=== PATIENT | male | born 1965 | race Caucasian/White ===

== ENCOUNTER 2022-11-01 09:56 | Outpatient (CLI) | payer OTHER, SELFPAY ==
[2022-11-01 13:31] LABS: Albumin* 3.1 g/dL (3.3-5.0)
[2022-11-01 13:34] LABS: Alkaline Phosphatase* 116 U/L (40-150); Aspartate Amino Transferase* 127 U/L (12-35); Bilirubin Direct* 1.1 mg/dL (0.0-0.5); Bilirubin Total* 3.2 mg/dL (0.1-1.5); Total Protein* 7.3 g/dL (6.0-8.3)
[2022-11-01 13:35] LABS: Alanine Aminotransferase* 54 U/L (4-50)
[2022-11-01 13:46] LABS: Cholesterol* 101 mg/dL (90-199)
[2022-11-01 13:47] LABS: HDL Cholesterol* 13 mg/dL (>=40); LDL Cholesterol Calculated 76 mg/dL (<100); Triglycerides* 60 mg/dL (40-149)
[2022-11-01 14:07] LABS: PSA Screen* 0.25 ng/mL (0.10-4.00)
== END 2022-11-01 09:57 | disposition home or self-care (01) ==
PROVIDERS: PCP Family Medicine; Visit Provider Family Medicine
DX: Z00.00 Encounter for general adult medical examination without abnormal findings (principal); I10 Essential (primary) hypertension; R05.9 Cough, unspecified; R53.83 Other fatigue; R79.89 Other specified abnormal findings of blood chemistry; Z12.5 Encounter for screening for malignant neoplasm of prostate
CPT/HCPCS: 80061; 80076; 84153

== ENCOUNTER 2022-11-01 11:32 | Inpatient (IN) | payer OTHER, SELFPAY ==
[2022-11-01] VITALS (8 sets, daily range): BP systolic 125–145; BP diastolic 75–84; PULSE 59–98; RESP 16–18; TEMP 36.6–37.1; O2SAT 95–99; BMI 31.6
--- NOTE | 2022-11-01 11:43 | CRLHL7_ITS ---
For Patients: As a result of the Century Cures Act, medical imaging exams and procedure reports are released immediately into your electronic medical record. You may view this report before your referring provider. If you have questions, please contact your health care provider. INDICATION: Abnormal chest x-ray COMPARISON: A chest radiograph dated November 01, 2019 TECHNIQUE: : CT examination of the chest was performed with the uneventful intravenous administration of 95 cc of Isovue 370 while thin axial sections were obtained from above the apices of the lungs to the lung bases. Please note that all CT scans at this facility use dose modulation, iterative reconstruction, and/or weight-based dosing when appropriate to reduce radiation dose to as low as reasonably achievable. FINDINGS: : HEART and MEDIASTINUM: The heart is mildly enlarged. There is no mediastinal or hilar adenopathy or mass. Atherosclerotic vascular and valvular calcifications. No pericardial effusion PULMONARY ARTERIAL CIRCULATION: There is no visible intraluminal filling defect to suggest pulmonary embolus. LUNGS and PLEURAL SPACES: Marked dense consolidation the right lower lobe. This is most of the superior segment of the right lower lobe and the posterior and medial basilar segments as well as a portion of the lateral segment. This is consistent with pneumonia. There are few patchy nodules bilaterally that are tree-in-bud nodules which are usually inflammatory. No significant pleural fluid VISUALIZED UPPER ABDOMEN: Hepatic steatosis. Otherwise, the limited visualized upper abdominal structures appear normal. OSSEOUS STRUCTURES: Age-appropriate appearance. No acute fracture or destructive process. TUBES and LINES: None. IMPRESSION: 1. Dense consolidation of much of the right lower lobe. This is consistent with dense lobar pneumonia. Tiny right effusion. Tree-in-bud nodules bilaterally consistent with infectious bronchiolitis without judi pneumonia. Imaging follow-up to complete resolution is advised. 2. Hepatic steatosis Please note that all CT scans at this facility use dose modulation, iterative reconstruction, and/or weight-based dosing when appropriate to reduce radiation dose to as low as reasonably achievable. Dictated by Meek Hurtado MD @ 11/01/2022 2:12:51 PM (Electronically Signed)
--- NOTE | 2022-11-01 12:10 | P.IMHP_ITS ---
Hospitalist- H&P: HPI History of Present Illness Date Seen: 11/01/22 Chief complaint: Direct Admit Narrative: Vic Almazan is a 57 year old male who was direct admitted to the hospital from the [facility], after seeing his PCP, Dr. Johns, for illness. Vic notes feeling poorly for the last 7-10 days. He has had a cough, weakness, fatigue, intermittent dizziness. He tested himself at home for COVID which was negative. present for evaluation in notes that he has also had intermittent periods of confusion and has not been eating both are symptoms that were noted when he was hyponatremic in the past (hospitalized for this in 2016; sodium <115 while on HCTZ), so they made an appointment to see Dr. Johns today. Clinic findings: - R sided pneumonia on imaging - sodium of 121, K of 3.4 - Bilirubin 3.2, AST 127, ALT 54 - elevated D-dimer Patient did not require supplemental oxygen and was otherwise hemodynamically stable; so direct admission to the hospital requested. CT obtained upon admission, negative for PE. Findings per formal radiology read: 1. Dense consolidation of much of the right lower lobe. This is consistent with dense lobar pneumonia. Tiny right effusion. Tree-in-bud nodules bilaterally consistent with infectious bronchiolitis without judi pneumonia. Imaging follow-up to complete resolution is advised. 2. Hepatic steatosis Vic lives in [place], Dr. Johns is PCP. History updated in tabs below. 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 She would be medical decision maker if needed. He requests full code status. He is a nonsmoker (chart review endorses a history of chewing tobacco use). He notes a history of alcohol overuse; has not had any alcohol in approximately the past 10 days secondary to illness, but typically drinks daily. No history of alcohol withdrawal seizures. Review of Systems Status of ROS: Reports: 10 or more systems reviewed and unremarkable except as noted in History and below Narrative: Notes that he's felt so poorly over the past 10 days that he hasn't been able to go to work. Appetite decreased. Circular bruise left tricep, unknown mechanism. No other skin concerns. No lower extremity edema or paresthesias, endorses feeling weak in legs bilaterally. No GERD, no concerns of aspiration [facility] Medical History (Updated 11/01/22 @ 14:42 by Guillermina Kelly MD) Elevated liver function tests Encounter for routine history and physical examination of adult Essential hypertension Surgical History (Updated 11/01/22 @ 14:10 by Guillermina Kelly MD) No history of previous surgery Family History (Updated 11/01/22 @ 14:10 by Guillermina Kelly MD) Father High blood pressure Social History (Updated 11/01/22 @ 14:41 by Guillermina Kelly MD) Narrative: Lives with Edilma, works in construction. Daily alcohol use. Nonsmoker. Requests full code status. service: No Meds Home Medications and Allergies Home Medications Medication Instructions Recorded Confirmed Type lisinopril 40 mg tablet 40 mg PO QDAY 11/01/22 11/01/22 History metoprolol succinate 100 mg 100 mg PO DAILY 11/01/22 11/01/22 History tablet,extended release 24 hr Home Medication Comments: Also on Amlodipine 7.5mg daily. Takes Lisinopril at HS, takes Amlodipine and Metoprolol in the morning. Allergies Allergy/AdvReac Type Severity Reaction Status Date / Time hydrochlorothiazide Allergy Severe decreases Verified 11/01/22 11:58 sodium levels Exam Narrative: Exam Narrative: GEN: Awake and answering questions, appears tired but not toxic HEENT: Normal external ears, EOMIs bilaterally, no scleral icterus CV: RRR, No concerning murmurs, rubs, or gallops R: Rales R base, no concerning wheezing. No tachypnea Ext: wwp, no concerning edema Skin: Circular bruise R tricep, approximately 7cm in greatest diameter. No other concerning skin lesions or rashes on exposed skin Neuro: No focal deficits, no resting tremor, gait not observed Psych: Mild psychomotor slowing noted, not acutely confused Assessment and Plan Assessment and plan (1) Pneumonia: Problem comment: - R sided, community acquired vs aspiration (no known aspiration events) - no PE on CT - draw blood cultures, initiate Zosyn (11/01) - RT referral Status: Acute (2) Hyponatremia: Problem comment: - likely combination of increased free water intake while ill (decreased po intake) + ETOH use - low dose IVFs, fluid restriction - follow sodium closely Status: Acute (3) Fatigue: Problem comment: - likely 2/2 #1 Status: Acute (4) Elevated liver function tests: Problem comment: - likely combination of hepatosteatosis (noted on admission CT) + ETOH - continue to follow, recommend complete alcohol cessation Status: Acute (5) Alcohol abuse: Problem comment: - with sequela of elevated LFTs, macrocytic anemia, hyponatremia, thrombocytopenia Status: Acute (6) Essential hypertension: Problem comment: - age appropriate control, continue home medications Status: Acute Plan - per above - SCDs and Lovenox (to start 11/02) for ppx - Full Code status
[2022-11-01 12:39] LABS: PCR FLU A Negative PCR FLU A (Negative); PCR FLU B Negative PCR FLU B (Negative); PCR RSV Negative PCR RSV (Negative)
[2022-11-01 12:41] LABS: SARS PCR* Negative SARS-CoV-2 (Negative)
[2022-11-01] MEDS: 0.9 % SODIUM CHLORIDE 1000 ml 1,000 ML 125 ML IV ×2 (13:54→22:00)
[2022-11-01] MEDS: PANTOPRAZOLE SODIUM 40 MG INJ IVP (14:02)
[2022-11-01] MEDS: THIAMINE 100 MG TABLET PO (14:02)
[2022-11-01] MEDS: PIPERACILLIN/TAZOBACTAM 4.5 GM in 0.9 % SODIUM CHLORIDE Mini-bag 100 ML IVPB ×2 (15:52→20:32)
[2022-11-01 16:05] LABS: Chloride* 87 mmol/L (96-114)
[2022-11-01 16:06] LABS: Potassium* 3.1 mmol/L (3.6-5.1)
[2022-11-01 16:08] LABS: Creatinine* 0.7 mg/dL (0.5-1.5); Est. Creatinine Clearance* 126.99; Estimated Glomerular Filt Rate 109 ml/min
[2022-11-01 16:09] LABS: Blood Urea Nitrogen* 9 mg/dL (7-30); Calcium* 8.2 mg/dL (8.4-10.6); Carbon Dioxide* 27 mmol/L (20-32); Glucose* 98 mg/dL (60-115)
[2022-11-01 16:17] LABS: Sodium* 121 mmol/L (135-149)
--- NOTE | 2022-11-01 19:05 | PC.NURSE ---
Pt alert and oriented, answering questions appropriately, slightly delayed responses on initial questions but improved. Pt up to bathroom w/ SBA originally to bathroom but steady on feet and w/ IV pole maneuvering. Voiding into urinal in bathroom, first couple voids unmeasured. Intermit cough. Vitals stable, on RA. x2 PIVs, L hand has IVF infusing per order, received Zosyn this shift, BC pending. CIWA 0. Pt and educated on pt's diet of and 1500ml fluid restriction. Pt has call light within reach and able to use.
[2022-11-01] MEDS: lisinopriL 20 MG TABLET 40 MG PO (20:29)
[2022-11-01] MEDS: SODIUM CHLORIDE 0.9 % (FLUSH) 10 ML SYRINGE 5 ML IVF (20:33)
[2022-11-01 20:50] LABS: Chloride* 91 mmol/L (96-114)
[2022-11-01 20:53] LABS: Creatinine* 0.8 mg/dL (0.5-1.5); Est. Creatinine Clearance* 111.12; Estimated Glomerular Filt Rate 105 ml/min
[2022-11-01 20:54] LABS: Blood Urea Nitrogen* 9 mg/dL (7-30); Calcium* 8.1 mg/dL (8.4-10.6); Carbon Dioxide* 27 mmol/L (20-32); Glucose* 109 mg/dL (60-115)
[2022-11-01 21:12] LABS: Sodium* 123 mmol/L (135-149)
[2022-11-01] MEDS: POTASSIUM BICARB 25 MEQ EFFERVESCENT TAB PO (22:23)
[2022-11-02] VITALS (8 sets, daily range): BP systolic 113–127; BP diastolic 60–77; PULSE 64–81; RESP 18; TEMP 36.8–37.1; O2SAT 94–100
[2022-11-02] MEDS: POTASSIUM BICARB 25 MEQ EFFERVESCENT TAB PO (00:03)
[2022-11-02] MEDS: PIPERACILLIN/TAZOBACTAM 4.5 GM in 0.9 % SODIUM CHLORIDE Mini-bag 100 ML IVPB ×3 (03:14→14:41)
--- NOTE | 2022-11-02 06:14 | PC.NURSE ---
VSS on RA. Patient alert and oriented x4, call light appropriate. Patient denies pain on assessment. IV fluid infusing at 125/ml, antibiotics infused x2 this shift.
[2022-11-02 06:57] LABS: Basophils Absolute Auto 0.04 K/uL (0.00-0.30); Basophils Percent Auto 0.7 % (0.0-3.0); Eosinophils Absolute Auto 0.11 K/uL (0.00-0.50); Eosinophils Percent Auto 1.8 % (0.0-7.0); Hematocrit 30.6 % (37.0-53.0); Hemoglobin* 11.2 gm/dL (13.5-17.5); Immature Granulocytes Abs Auto 0.02 K/uL (0.00-0.30); Immature Granulocytes Pct Auto 0.3 %; Lymphocytes Percent Auto 13.7 % (20-44); Mean Corpuscular HGB Conc 37 gm/dL (32-36); Mean Corpuscular Hemoglobin 37 pg (26-34); Mean Corpuscular Volume 102 fL (80-100); Monocytes Percent Auto 13.5 % (0.0-11.0); Neutrophils Absolute Auto 4.25 K/uL (1.7-7.0); Platelet Count* 91 K/uL (140-440); RDW Coefficient of Variation % 12.8 % (11.5-15.5); White Blood Count* 6.07 K/uL (4.50-11.00)
[2022-11-02 07:04] LABS: Slide Review Reflex No
[2022-11-02 07:16] LABS: INR 1.48 (0.91-1.10); Prothrombin Time 18.8 Seconds
[2022-11-02 07:20] LABS: Albumin* 2.7 g/dL (3.3-5.0); Chloride* 95 mmol/L (96-114); Potassium* 3.4 mmol/L (3.6-5.1); Sodium* 126 mmol/L (135-149)
[2022-11-02 07:22] LABS: Creatinine* 0.8 mg/dL (0.5-1.5); Est. Creatinine Clearance* 111.12; Estimated Glomerular Filt Rate 105 ml/min
[2022-11-02 07:23] LABS: Alanine Aminotransferase* 44 U/L (4-50); Alkaline Phosphatase* 112 U/L (40-150); Aspartate Amino Transferase* 88 U/L (12-35); Bilirubin Total* 2.5 mg/dL (0.1-1.5); Blood Urea Nitrogen* 9 mg/dL (7-30); Calcium* 7.6 mg/dL (8.4-10.6); Carbon Dioxide* 27 mmol/L (20-32); Glucose* 95 mg/dL (60-115); Magnesium* 1.6 mg/dL (1.5-2.6); Total Protein* 6.4 g/dL (6.0-8.3)
[2022-11-02] MEDS: 0.9 % SODIUM CHLORIDE 1000 ml 1,000 ML 125 ML IV (08:35)
[2022-11-02] MEDS: SODIUM CHLORIDE 0.9 % (FLUSH) 10 ML SYRINGE 5 ML IVF (08:36)
[2022-11-02] MEDS: MULTIVITAMIN/MINERALS 1 TABLET 1 TAB PO (08:37)
[2022-11-02] MEDS: POTASSIUM CHLORIDE 10 MEQ CAPSULE ER 20 MEQ PO (08:37)
[2022-11-02] MEDS: AMLODIPINE 5 MG TABLET 7.5 MG PO (08:37)
[2022-11-02] MEDS: METOPROLOL SUCCINATE (XL) 100 MG TAB PO (08:38)
--- NOTE | 2022-11-02 10:43 | NUTR.NU ---
RDN with MD consult for hyponatremia. RDN visited with patient whom reported very low oral intake about 7 days prior to admit. He increased his water intake within those 7 days, however did not eat very much food. Sodium levels on admit (11/01/22) 121; Sodium level 11/02/22 126. RDN recommended to patient that when he is ill and has very low oral intake, he should consume fluids with electrolyes such as Gatorade or Pedialyte instead of plain water. Plain water does not provide any electrolytes which can cause low sodium levels if oral intake is very low. Patient expressed his understanding. Had no additional questions at this time. RDN will continue to monitor and follow-up prn.
--- NOTE | 2022-11-02 11:15 | RESP.RT ---
Pt started PEP therapy. Working well with it towards the end of treatment. Instructed pt to use at home 4 times per day for 5-10 minutes. Pt with harsh dry FORGE HEATER cough. Pt reports coughing up sputum at times. BBS decreased in R LL, scattered Rhonchi.
[2022-11-02] MEDS: THIAMINE 100 MG TABLET PO (12:45)
[2022-11-02] MEDS: PANTOPRAZOLE SODIUM 40 MG INJ IVP (12:45)
--- NOTE | 2022-11-02 14:49 | PC.NURSE ---
End of shift. Pt alert and oriented x4. no pain. he is up ab santo. RT was in to see. Aerobika was used. SL in right Ac and , L hand infusing maintenance fluids, received IV Zosyn this shift, BC pending. CIWA 0. Pt on a 1500ml fluid restriction. Pt has call light within reach and able to use.
[2022-11-02 15:14] LABS: Chloride* 97 mmol/L (96-114); Potassium* 3.4 mmol/L (3.6-5.1); Sodium* 128 mmol/L (135-149)
[2022-11-02 15:17] LABS: Blood Urea Nitrogen* 8 mg/dL (7-30); Carbon Dioxide* 26 mmol/L (20-32); Creatinine* 0.7 mg/dL (0.5-1.5); Est. Creatinine Clearance* 126.99; Estimated Glomerular Filt Rate 109 ml/min; Glucose* 122 mg/dL (60-115)
[2022-11-02 15:18] LABS: Calcium* 7.5 mg/dL (8.4-10.6)
--- NOTE | 2022-11-02 15:48 | P.DS_ITS ---
DS: Providers Provider Date Seen: 11/02/22 Date of admission: 11/01/22 11:32 Primary care physician: Jose Johns MD Admitting Clinician: Guillermina Kelly MD Consults: Nutrition, RT Attending Physician on discharge: Guillermina Kelly MD Date of Discharge: 11/02/22 DS: Diagnosis Discharge Diagnosis (1) Pneumonia: Status: Acute Problem details: - R sided, community acquired vs aspiration (no known aspiration events, elevated risk given ETOH use) - no PE on admission CT - treated with Zosyn; BCx negative on discharge - will need repeat outpatient XR in 4 weeks to ensure resolution (2) Elevated liver function tests: Status: Acute Problem details: - likely combination of hepatosteatosis (noted on admission CT) + ETOH - MELD score of 25 on admission, recommend close outpatient f/u and complete ETOH cessation; patient and aware (3) Hyponatremia: Status: Acute Problem details: - likely combination of increased free water intake while ill (decreased po intake) + ETOH use - improved appropriately with fluid restriction and low dose IVFs (4) Alcohol abuse: Status: Acute Problem details: - with sequela of elevated MELD, elevated LFTs, macrocytic anemia, hyponatremia, thrombocytopenia - recommend complete cessation upon discharge; patient and verbalize understanding (5) Essential hypertension: Status: Acute Problem details: - age appropriate control, continued home medications during stay DS: Summary Hospital Course Hospital Course: 57 yo male, admitted to the hospital on 11/01 for R sided pneumonia and hyponatremia. Notable hospital findings above. Sodium improved with low dose IVFs and mild fluid restriction. LFTs improved during stay; remained elevated with known history of ETOH abuse and steatohepatitic disease. Pneumonia treated with Zosyn, will transition to Augmentin upon discharge. Patient will require short interval f/u with PCP for repeat labs (appt made upon d/c); he will also require repeat CXR in 4 weeks to ensure resolution of PNA. Status at Discharge Functional status at discharge: independent ambulation Overall status at discharge: patient is progressing back to baseline Time Spent with Patient Time attestation: Total time spent providing and/or coordinating discharge services: Time spent: Greater than 30 minutes Specific discharge activities: Medication reconciliation, updates to patient and , followup planning Exam 2 Narrative: Exam Narrative: GEN: Awake and alert, sitting comfortably in bed and answering questions appropriately HEENT: EOMIs bilaterally, no scleral icterus CV: RRR, No concerning murmurs, rubs, or gallops R: Air movement adequate throughout, no concerning wheezing Ext: wwp, no concerning edema Skin: No concerning skin lesions on exposed skin Neuro: No focal deficits, no resting tremor, gait not observed Psych: Appropriate Const: Vital Signs, click to edit/add: Vital Signs - 24 hr 11/01/22 18:37 11/01/22 19:00 11/01/22 19:00 Temperature 98.5 F 98.5 F Pulse Rate 69 Pulse Rate [Pulse Oximeter] 70 70 Respiratory Rate 18 18 Blood Pressure [Le ft Arm] 136/78 136/78 Pulse Oximetry 97 97 Oxygen Delivery N[place] thod Room Air Room Air 11/01/22 23:00 11/01/22 23:00 11/01/22 23:00 Temperature 98.5 F Pulse Rate Pulse Rate [Pulse Oximeter] 70 70 Respiratory Rate 18 18 Blood Pressure [Le ft Arm] 136/78 [facility]ulse Oximetry 97 96 [facility] 11/01/22 23:00 11/02/22 02:37 11/02/22 03:00 Temperature 98.8 F 98.8 F Pulse Rate 64 Pulse Rate [Pulse Oximeter] 69 69 Respiratory Rate 18 18 Blood Pressure [Le ft Arm] 125/77 125/77 Pulse Oximetry 96 96 [facility] Room [facility] 11/02/22 03:00 11/02/22 07:59 11/02/22 07:00 Temperature 98.4 F 98.4 F Pulse Rate 81 Pulse Rate [Pulse Oximeter] 73 76 Respiratory Rate 18 18 Blood Pressure [Le ft Arm] 113/67 127/76 Pulse Oximetry 96 96 [facility] 11/02/22 07:00 11/02/22 07:00 11/02/22 07:00 Temperature 98.4 F Pulse Rate Pulse Rate [Pulse Oximeter] 76 76 Respiratory Rate 18 18 18 Blood Pressure [Le ft Arm] 127/76 Pulse Oximetry 96 96 [facility] 11/02/22 11:00 11/02/22 11:05 Temperature 98.5 F 98.5 F Pulse Rate Pulse Rate [Pulse Oximeter] 75 75 Respiratory Rate 18 18 Blood Pressure [Le ft Arm] 122/60 122/60 Pulse Oximetry 100 100 Oxygen Delivery Me thod Room Air Room Air DS: Data Data Completed and Pending Labs on day of discharge: Labs from last 24 hours 11/02/22 11/02/22 11/02/22 14:54 06:44 06:44 WBC RBC Hgb Hct MCV MCH MCHC RDW Coeff of Siri Plt Count Neut % (Auto) Lymph % (Auto) [place] % (Auto) Eos % (Auto) Baso % (Auto) Neut # (Auto) Lymph # (Auto) [place] # (Auto) Eos # (Auto) Baso # (Auto) INR 1.48 H Sodium 128 L 126 L Potassium 3.4 L 3.4 L Chloride 97 95 L Carbon Dioxide 26 27 BUN 8 9 Creatinine 0.7 0.8 Estimated Creat Clear 126.99 111.12 Estimated GFR 109 105 Glucose 122 H 95 Calcium 7.5 L 7.6 L Magnesium 1.6 Total Bilirubin 2.5 H AST 88 H ALT 44 Alkaline Phosphatase 112 Total Protein 6.4 Albumin 2.7 L 11/02/22 11/01/22 11/01/22 06:44 20:33 15:22 WBC 6.07 RBC 3.00 L Hgb 11.2 L Hct 30.6 L MCV 102 H MCH 37 H MCHC 37 H RDW Coeff of Siri 12.8 Plt Count 91 L Neut % (Auto) 70.0 Lymph % (Auto) 13.7 L [place] % (Auto) 13.5 H Eos % (Auto) 1.8 Baso % (Auto) 0.7 Neut # (Auto) 4.25 Lymph # (Auto) 0.80 L [place] # (Auto) 0.80 Eos # (Auto) 0.11 Baso # (Auto) 0.04 INR Sodium 123 L* 121 L* Potassium 3.0 L 3.1 L Chloride 91 L 87 L Carbon Dioxide 27 27 BUN 9 9 Creatinine 0.8 0.7 Estimated Creat Clear 111.12 126.99 Estimated GFR 105 109 Glucose 109 98 Calcium 8.1 L 8.2 L Magnesium Total Bilirubin AST ALT Alkaline Phosphatase Total Protein Albumin Preliminary micro results at discharge 11/01/22 15:22 Blood Culture - Preliminary Blood NO GROWTH AFTER 24 HOURS Discharge Plan Discharge Disposition: Home, Self-Care Date of Admission: 11/01/22 11:32 Attending Provider on Discharge: Guillermina Kelly Primary Care Provider: Jose Johns Condition: Improved Anticipated Discharge Date/Time: 11/02/22 16:30 Discharge Medications: New amoxicillin-pot clavulanate 875-125 mg tablet 1 tab PO Q12H Qty: 16 0RF Rx Instructions: take BID with food to complete 10 day course of antibiotics Continued lisinopril 40 mg tablet 40 mg PO QDAY metoprolol succinate 100 mg tablet extended release 24 hr 100 mg PO DAILY Label Comments: TAKE 1 TABLET BY MOUTH ONCE DAILY amlodipine 5 mg tablet 7.5 mg PO QDAY Qty: 135 0RF Discharge Orders: Discharge Order (Routine); Ordered 11/02/22 Ordered By: Guillermina Kelly Patient Education: Amoxicillin/Clavulanate Potassium (By mouth) (Augmentin, Augmentin..., Hyponatremia (DC), Alcohol Use Disorder (GEN) Additional Instructions: Complete course of antibiotics (sent to pharmacy) - take twice/day with food. Make sure you're on a daily probiotic while on these (yogurt is an easy option). Appt with Dr. Johns (+ labs) within the next few days to ensure your labs are continuing to improve. You also need to see Dr. Johns in 4 weeks for a repeat Chest XRay to ensure that your pneumonia has fully cleared. No Alcohol use upon discharge given severity of liver disease. Consider following up with a [employer] (liver specialist). Activity Level: Activity as Tolerated Diet Detail: Make sure you're eating regularly and keep fluids to 1500- 1800mL/day until sodium levels are back to normal. Follow Up Appointments: Jose Johns MD [Primary Care Provider] - 11/10/22 10:45 am (within the next 5-7 days (needs CMP at that appt as well)) Forms: Message Miss[employer] Info Instructions
--- NOTE | 2022-11-02 17:21 | PC.NURSE ---
Patient educated on the signs and symptoms of low sodium. present for education/instructions. Discharge instructions discussed with patient and all questions were answered and forms were signed. Saline lock removed from right AC and left wrist. All belongings were sent and patient was ambulatory to the front exit with his significant other.
== END 2022-11-02 17:15 | disposition home or self-care (01) | DRG 194 ==
PROVIDERS: Admitting Provider Family Medicine; PCP Family Medicine; Visit Provider Family Medicine
DX: J18.9 Pneumonia, unspecified organism (principal); E87.1 Hypo-osmolality and hyponatremia; R94.5 Abnormal results of liver function studies; R53.83 Other fatigue; R79.89 Other specified abnormal findings of blood chemistry; F10.10 Alcohol abuse, uncomplicated; I10 Essential (primary) hypertension
CPT/HCPCS: 36415; 71260; 80048; 80053; 83735; 85025; 85610; 87040; 87502; 87634; 87635; 94664; A9153; A9270; C9113; J2543; J7030; Q9967

== ENCOUNTER 2022-11-11 09:53 | Outpatient (CLI) | payer OTHER, SELFPAY ==
[2022-11-11 13:21] LABS: Albumin* 2.7 g/dL (3.3-5.0); Chloride* 100 mmol/L (96-114); Sodium* 132 mmol/L (135-149)
[2022-11-11 13:23] LABS: Creatinine* 0.6 mg/dL (0.5-1.5); Estimated Glomerular Filt Rate 114 ml/min
[2022-11-11 13:24] LABS: Alanine Aminotransferase* 47 U/L (4-50); Alkaline Phosphatase* 121 U/L (40-150); Aspartate Amino Transferase* 92 U/L (12-35); Bilirubin Total* 1.9 mg/dL (0.1-1.5); Blood Urea Nitrogen* 7 mg/dL (7-30); Calcium* 8.2 mg/dL (8.4-10.6); Carbon Dioxide* 29 mmol/L (20-32); Glucose* 102 mg/dL (60-115); Total Protein* 6.9 g/dL (6.0-8.3)
== END 2022-11-11 09:54 | disposition home or self-care (01) ==
LOC: LKVREF 09:53
PROVIDERS: PCP Family Medicine; Visit Provider Family Medicine
DX: I10 Essential (primary) hypertension (principal); E87.1 Hypo-osmolality and hyponatremia; J18.9 Pneumonia, unspecified organism; R79.89 Other specified abnormal findings of blood chemistry
CPT/HCPCS: 80053

== ENCOUNTER 2022-11-17 08:06 | Outpatient (CLI) | payer OTHER, SELFPAY | END 2022-11-17 08:07 | disposition home or self-care (01) | PROVIDERS: PCP Family Medicine; Visit Provider Family Medicine | DX: Z00.00 Encounter for general adult medical examination without abnormal findings (principal); I10 Essential (primary) hypertension; R79.89 Other specified abnormal findings of blood chemistry; E87.1 Hypo-osmolality and hyponatremia | CPT/HCPCS: 80076 ==

== ENCOUNTER 2022-12-06 14:31 | Outpatient (CLI) | payer OTHER, SELFPAY | END 2022-12-06 14:32 | disposition home or self-care (01) | LOC: LKVREF 14:32 | PROVIDERS: PCP Family Medicine; Visit Provider Family Medicine | DX: D64.9 Anemia, unspecified (principal); E87.1 Hypo-osmolality and hyponatremia; I10 Essential (primary) hypertension; R79.89 Other specified abnormal findings of blood chemistry | CPT/HCPCS: 80053 ==

== ENCOUNTER 2022-12-26 08:36 | Outpatient (CLI) | payer OTHER, SELFPAY | END 2022-12-26 08:37 | disposition home or self-care (01) | PROVIDERS: PCP Family Medicine; Visit Provider Family Medicine | DX: Z01.818 Encounter for other preprocedural examination (principal) | CPT/HCPCS: 80048 ==

== ENCOUNTER 2023-01-10 07:00 | Outpatient (CLI) | payer OTHER, SELFPAY ==
--- NOTE | 2023-01-10 09:35 | W.ANESCHARGE ---
Anesthesia Charges Start Date/Time Anesthesia Start Date: 01/10/23 Anesthesia Start Time: 08:11 Stop Date/Time Anesthesia Stop Date: 01/10/23 Anesthesia Stop Time: 09:16
--- NOTE | 2023-01-10 11:47 | W.ANESCHARGE ---
Anesthesia Charges Start Date/Time Anesthesia Start Date: 01/10/23 Anesthesia Start Time: 08:11 Stop Date/Time Anesthesia Stop Date: 01/10/23 Anesthesia Stop Time: 09:16
== END 2023-01-10 07:01 | disposition home or self-care (01) ==
LOC: OP CLINIC 07:01
PROVIDERS: PCP Family Medicine; Visit Provider Surgery
DX: D50.9 Iron deficiency anemia, unspecified; K31.89 Other diseases of stomach and duodenum; K63.5 Polyp of colon
CPT/HCPCS: 00813; 43239; 45385; 88305; 88342; J2704; J3490

== ENCOUNTER 2023-08-01 12:58 | Outpatient (CLI) | payer OTHER, SELFPAY | END 2023-08-01 12:59 | disposition home or self-care (01) | PROVIDERS: PCP Family Medicine; Visit Provider Nurse Practitioner Family | DX: R53.83 Other fatigue (principal); R53.1 Weakness; R05.9 Cough, unspecified; D64.9 Anemia, unspecified | CPT/HCPCS: 80076; 83540; 83550; 85045; 85610 ==

== ENCOUNTER 2023-08-11 09:57 | Outpatient (CLI) | payer OTHER, SELFPAY ==
[2023-08-11 13:35] LABS: Lab Add On Test New Spec Needed
== END 2023-08-11 09:58 | disposition home or self-care (01) ==
PROVIDERS: PCP Family Medicine; Visit Provider Family Medicine
DX: D61.818 Other pancytopenia (principal); F10.10 Alcohol abuse, uncomplicated
CPT/HCPCS: 80076; 82607; 84425

== ENCOUNTER 2023-08-15 10:30 | Outpatient (CLI) | payer OTHER, SELFPAY ==
--- NOTE | 2023-08-17 13:55 | ONC.NURNOTE ---
Patient was referred for pancytopenia. Message sent to Dr. Mrain requesting the following labs be completed prior to seeing ditch cleaner. Peripheral smear, B12, folate, MMA, iron studies, retic count, LDH, and direct bili. Patient to have completed his ultrasound as well.
== END 2023-08-15 10:31 | disposition home or self-care (01) ==
LOC: NFLDREF 08-16 06:48
PROVIDERS: PCP Family Medicine; Referring Provider Family Medicine; Visit Provider Family Medicine
DX: D64.9 Anemia, unspecified (principal); D61.818 Other pancytopenia; R79.89 Other specified abnormal findings of blood chemistry; E87.1 Hypo-osmolality and hyponatremia; E87.6 Hypokalemia; F10.10 Alcohol abuse, uncomplicated
CPT/HCPCS: 80053; 80074

== ENCOUNTER 2023-08-23 08:05 | Outpatient (CLI) | payer OTHER, SELFPAY ==
--- NOTE | 2023-08-23 08:15 | CRLHL7_ITS ---
For Patients: As a result of the Century Cures Act, medical imaging exams and procedure reports are released immediately into your electronic medical record. You may view this report before your referring provider. If you have questions, please contact your health care provider. INDICATION: elevated LFTs, alcohol abuse COMPARISON: 04/11/2019 TECHNIQUE: Real time castillo scale imaging and color Doppler analysis was performed of the right upper quadrant. FINDINGS: The patient`s liver is of normal size and has diffusely coarsened echogenicity. There is a normal appearance of the hepatic IVC and proximal abdominal aorta. There is no evidence of ascites. Normal patency of the main portal vein with antegrade flow. Layering echogenic stones and sludge noted in the gallbladder lumen. The gallbladder wall measures 6 mm in thickness. The common bile duct is of normal size and measures 4 mm in diameter at the level of the brina hepatis. The pancreas is not well-visualized. There is no evidence of a stone or hydronephrosis within the right kidney. The right kidney measures 10.7 cm in length. IMPRESSION: Chronic liver disease with coarsened echotexture compatible cirrhosis. Abdominal varices noted within the right upper retroperitoneum. No ascites. Layering stones and sludge within the gallbladder. Gallbladder wall thickening is present may be due to chronic cholecystitis or chronic liver disease. Dictated by Pablito Mace MD @ 08/23/2023 9:46:43 AM (Electronically Signed)
== END 2023-08-23 08:06 | disposition home or self-care (01) ==
LOC: US 08:06
PROVIDERS: PCP Family Medicine; Visit Provider Family Medicine
DX: F10.10 Alcohol abuse, uncomplicated (principal); R79.89 Other specified abnormal findings of blood chemistry; K80.20 Calculus of gallbladder without cholecystitis without obstruction; K76.9 Liver disease, unspecified; D69.6 Thrombocytopenia, unspecified; D64.9 Anemia, unspecified
CPT/HCPCS: 76705

== ENCOUNTER 2023-08-29 13:48 | Outpatient (CLI) | payer OTHER, SELFPAY | END 2023-08-29 13:49 | disposition home or self-care (01) | LOC: NFLDREF 09-01 11:15 | PROVIDERS: PCP Family Medicine; Referring Provider Family Medicine; Visit Provider Family Medicine | DX: D61.818 Other pancytopenia (principal) | CPT/HCPCS: 82248; 82607; 82746; 83540; 83550; 83615; 85045 ==

== ENCOUNTER 2023-08-31 10:01 | Outpatient (CLI) | payer OTHER, SELFPAY ==
[2023-08-31 11:45] LABS: Alanine Aminotransferase* 47 U/L (4-50); Albumin* 3.4 g/dL (3.3-5.0); Alkaline Phosphatase* 128 U/L (40-150); Aspartate Amino Transferase* 95 U/L (12-35); Bilirubin Direct* 1.4 mg/dL (0.0-0.5); Bilirubin Total* 2.9 mg/dL (0.1-1.5); Total Protein* 8.3 g/dL (6.0-8.3)
== END 2023-08-31 10:02 | disposition home or self-care (01) ==
LOC: NFLDREF 10:05
PROVIDERS: PCP Family Medicine; Visit Provider Family Medicine
DX: D61.818 Other pancytopenia (principal); D64.9 Anemia, unspecified; D69.6 Thrombocytopenia, unspecified; F10.10 Alcohol abuse, uncomplicated; R79.89 Other specified abnormal findings of blood chemistry
CPT/HCPCS: 80076

== ENCOUNTER 2023-10-03 08:36 | Outpatient (CLI) | payer OTHER, SELFPAY ==
--- NOTE | 2023-10-03 09:00 | CRLHL7_ITS ---
For Patients: As a result of the 21st Century Cures Act, medical imaging exams and procedure reports are released immediately into your electronic medical record. You may view this report before your referring provider. If you have questions, please contact your health care provider. INDICATION: Pancytopenia TECHNIQUE: Volumetric helical scanning of the chest, abdomen and pelvis was performed with 98 cc of Isovue 370 contrast material IV. Coronal and sagittal reconstructions were obtained. COMPARISON: Chest CT of 11/01/2022 FINDINGS: CHEST: No axillary, mediastinal or hilar adenopathy is apparent. The lungs are clear. No pulmonary nodule is noted. Mild bronchial wall thickening is noted. No pleural effusion is demonstrated. The heart is normal in size. ABDOMEN/PELVIS: The liver is suspected to be cirrhotic. No liver neoplasm is evident. The spleen is normal in size. A massive right mesenteric/retroperitoneal portosystemic shunt from the superior mesenteric vein to the SVC is demonstrate. Small distal esophageal/paraesophageal varices are noted. No ascites under impression No bile duct dilation is evident. A number of small stones demonstrated in the gallbladder. Mild celiac and brina hepatis lymphadenopathy is demonstrated. A celiac node with short axis measurement of 1.1 cm demonstrated on image 137 of series 2. a brina hepatis node on image 143 has a short axis measurement of 1.3 cm. No retroperitoneal, pelvic or mesenteric lymphadenopathy is noted. The adrenal glands and pancreas are negative. The kidneys are within normal limits. The bowel is unremarkable. A normal appendix noted. No free fluid is demonstrated. The prostate is normal. No lytic or blastic bone lesion is identified. IMPRESSION: 1. Presumed cirrhosis with portal venous hypertension manifested as a massive right mesenteric/retroperitoneal portosystemic shunt and small distal esophageal/paraesophageal varices. 2. Mild celiac and brina hepatis lymphadenopathy. No lymphadenopathy evident otherwise. 3. Cholelithiasis. 4. Mild bronchial wall thickening. Please note that all CT scans at this facility use dose modulation, iterative reconstruction, and/or weight-based dosing when appropriate to reduce radiation dose to as low as reasonably achievable. Dictated by Jim Hurley MD @ 10/03/2023 1:06:56 PM (Electronically Signed)
== END 2023-10-03 08:37 | disposition home or self-care (01) ==
PROVIDERS: PCP Family Medicine; Visit Provider Internal Medicine Hematology & Oncology
DX: D61.818 Other pancytopenia (principal); K80.20 Calculus of gallbladder without cholecystitis without obstruction; F10.10 Alcohol abuse, uncomplicated; K74.60 Unspecified cirrhosis of liver
CPT/HCPCS: 71260; 74177; Q9967

== ENCOUNTER 2023-12-05 08:45 | Outpatient (RCR) | payer OTHER, SELFPAY ==
--- NOTE | 2023-11-07 10:11 | PT.OPE ---
PT [place] [facility] Eval PT [facility] Out[facility] Eval Start: 11/06/23 17:08 Freq: Status: Active Protocol: Document 11/07/23 08:51 LSL (Rec: 11/07/23 10:08 LSL [id number]) E-signed By Yaquelin Perez, PT Physical Therapy Outpatient Evaluation Insurance Information Medical Diagnosis neck pain Referring MD Johns Subjective Subjective Pt. reports he has low iron and about a month and a half ago, in the middle of the night I got up to use the restroom and on my way back to bed I fell. He fell backwards and hit his head. Pt. reports he was able to get up. He reports everything hurt that night and he just thought he pulled some muscles, but over the next two days it got worse . Symptoms improve and then gets flared if I have to look up in the shower or especially if I am making a meal and looking down a lot. Then I just have to sit down. Takes about 10 minutes to calm down. Monday after making breakfast I got really hot it hurt so bad and I was sweating. Constant dull ache that intensifies and causes headaches. Denies dizziness or spinning. 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 PMH: HTN, cirrhosis Pain Comments 09/27 best, 05/28 worst Date of Last Physician Visit 10/24/23 Current Work Status Short Term Disability Occupation construction and carpentry Precautions Therapy Limitations/Systems Review Not Limited Objective Range of Motion AROM - cervical flexion WNL with pain, extension 25% with pain, LLF 25%, RLF 75%, L rotation 80%, R rotation WNL; if posture is improved and go through ROM flexion decreases , extension increases, LLF remains very limited, RLF decreases and B rotation remains good PROM - cervical flexion grossly intact, extension 50%, LLF 30% with L sided pain, RLF WFL, B rotation WFL Strength Cervical - 5/5 throughout with L LF 4+/5 Shoulders - L ER 4+/5, supraspinatus 4/5, R ER 4+/5, deltoid 4+/5, supraspinatus 4+ /5 Wrists and Fingers - 5/5 Palpation B cervical paraspinals, UT, and SCM tender L>R, L scalenes tight and tender, B OA tender , Posture significant increase in C-T kyphoslordosis with B protracted scapulae Sensation/Reflexes Compression negative Distraction relieving Reflexes - intact B Other/Pertinent Objective Joint Play - restricted C3-4 lateral glides, painful PA C7, L glides guarded throughout, T1 PA very tender, stiff and tender throughout thoracic spine to PAs and UPAs restricted but not tender. Assessment Assessment/Impression Pt. is a 58 y/o male who presents with cervical pain without radicular symptoms s/p fall in July 2023. He has more restriction with L LF and extension with tension in the L cervical paraspinals and scalenes that reproduce symptoms. Additionally his preexisting posture of significant increase in cervicothoracic kypholordosis, scapular protraction and shoulder IR in which he weight bears through his arms is likely contributory to his symptoms. He will benefit from care to decrease cervical tissue tension and improve cervical and interscapular strength. Treatment will consist of manual therapy, NM re-ed, therex and patient education to restore functional tolerance and mobility. Primary Functional Limitations looking down for extended periods of time to meal prep, looking up to wash hair in the shower Plan of Care Rehabilitation Potential Good Physical Therapy Goals SHORT TERM GOALS: (4 weeks) 1. Pt. to have increased cervical extension and left lateral flexion to 50% with pain less than 3/10. 2. Pt. to report decreased headaches to less than 2/week. 3. Pt. able to wash hair with pain less than 3/10. STILL PHOTOGRAPHER GOALS: 1. Pt. to have 5/5 strength throughout shoulders . 2. Pt. to have improved scapulothoracic kinesthetic awareness and control in sitting to decrease the amount of time spent resting his internally rotated and protracted shoulders through his arms onto his legs. 3. Pt. able to prepare meal with pain less than 3/10. Coordination/Communication With Referral Source Treatment Plan/Direct Interventions Joint Mobilization,Manual Therapy,Neuromuscular Re-ed, Self-Care/Home Management, Therapeutic Exercises Frequency/Duration 2x/week 4 weeks progressing to 1x/week for 4 weeks if needed Patient Will Be Discharged From Therapy Completion of LTG(s),Skills Plateau,Independent w/HEP, Independently Progressing Evaluation Billing Untimed Code Treatment Minutes 30 Complexity Moderate Certification Information Physician Comment/Change : Physician NPI Number #
== END 2024-02-05 16:22 | disposition home or self-care (01) ==
PROVIDERS: PCP Family Medicine; Visit Provider Family Medicine
DX: M54.2 Cervicalgia (principal); Z51.89 Encounter for other specified aftercare
CPT/HCPCS: 97110; 97140; 97162

== ENCOUNTER 2024-01-23 10:13 | Outpatient (CLI) | payer OTHER, SELFPAY ==
[2024-01-23 10:21] VITALS: BP 140/66; PULSE 68; RESP 16; O2SAT 100; BMI 30.8
--- NOTE | 2024-01-23 11:21 | W.ANESCHARGE ---
Anesthesia Charges Start Date/Time Anesthesia Start Date: 01/23/24 Anesthesia Start Time: 11:02 Stop Date/Time Anesthesia Stop Date: 01/23/24 Anesthesia Stop Time: 11:17
[2024-01-23 11:27] VITALS: BP 119/75; PULSE 69; RESP 16; O2SAT 100
--- NOTE | 2024-01-23 11:33 | W.ANESCHARGE ---
Anesthesia Charges Start Date/Time Anesthesia Start Date: 01/23/24 Anesthesia Start Time: 11:02 Stop Date/Time Anesthesia Stop Date: 01/23/24 Anesthesia Stop Time: 11:17
[2024-01-23 11:39] LABS: Basophils Percent Auto 1.5 % (0.0-3.0); Eosinophils Percent Auto 1.8 % (0.0-7.0); Hematocrit 26.7 % (37.0-53.0); Hemoglobin* 9.4 gm/dL (13.5-17.5); Immature Reticulocyte Fraction 5.6 % (2.3-13.4); Lymphocytes Percent Auto 33.8 % (20-44); Mean Corpuscular HGB Conc 35 gm/dL (32-36); Mean Corpuscular Hemoglobin 35 pg (26-34); Mean Corpuscular Volume 100 fL (80-100); Neutrophils Percent Auto 48.9 % (42.0-72.0); RDW Coefficient of Variation % 13.2 % (11.5-15.5); Red Blood Count 2.68 m/uL (4.30-5.90); Reticulocyte Hemoglobin Equivi 35.6 pg (29.0-35.0); Reticulocyte Percent 1.4 % (0.5-2.0); Reticulocytes Absolute 0.04 # (0.03-0.08); White Blood Count* 2.72 K/uL (4.50-11.00)
[2024-01-23 11:44] LABS: Platelet Count* 45 K/uL (140-440); Slide Review Reflex Yes
[2024-01-23 11:47] LABS: Slide Review Acceptable Review (Acceptable)
[2024-01-23 11:50] VITALS: BP 122/79; PULSE 75; RESP 18; O2SAT 100
== END 2024-01-23 11:54 | disposition home or self-care (01) ==
PROVIDERS: PCP Family Medicine; Visit Provider Internal Medicine Hematology & Oncology
DX: D75.9 Disease of blood and blood-forming organs, unspecified (principal)
CPT/HCPCS: 01112; 36415; 38222; 85025; 85045; 88184; 88185; 88237; 88264; 88305; 88311; 88312; 88313; 88341; 88342; J1644; J2001; J2704

== ENCOUNTER 2024-02-14 13:10 | Outpatient (RCR) | payer OTHER, SELFPAY ==
--- NOTE | 2023-12-20 14:23 | ONC.NURNOTE ---
Pt's Madie called left message stating pt had labs drawn at [facility] hgb-9.1, platelets 56,000, WBC 2.9. [facility] recommended pt following up with hematology again and questioning if bone marrow biopsy should be done. Discussed with Dr. Ferreira, pt has an appt with her on January [address] Ferreira will discuss labs at that appt. Left message with Madie, pt's with the above information.
[2024-01-10 11:15] LABS: Basophils Percent Auto 2.3 % (0.0-3.0); Eosinophils Percent Auto 4.2 % (0.0-7.0); Hematocrit 29.8 % (37.0-53.0); Hemoglobin* 10.7 gm/dL (13.5-17.5); Lymphocytes Percent Auto 42.6 % (20-44); Mean Corpuscular HGB Conc 36 gm/dL (32-36); Mean Corpuscular Hemoglobin 35 pg (26-34); Mean Corpuscular Volume 98 fL (80-100); Monocytes Percent Auto 10.3 % (0.0-11.0); Neutrophils Percent Auto 40.6 % (42.0-72.0); Platelet Count* 61 K/uL (140-440); RDW Coefficient of Variation % 13.1 % (11.5-15.5); Red Blood Count 3.04 m/uL (4.30-5.90); Reticulocyte Hemoglobin Equivi 35.5 pg (29.0-35.0); Reticulocyte Percent 1.5 % (0.5-2.0); Reticulocytes Absolute 0.04 # (0.03-0.08); White Blood Count* 2.63 K/uL (4.50-11.00)
[2024-01-10 11:23] LABS: Slide Review Reflex No
[2024-01-10 11:33] LABS: Albumin* 3.7 g/dL (3.3-5.0); Chloride* 97 mmol/L (96-114); Potassium* 4.8 mmol/L (3.6-5.1); Sodium* 129 mmol/L (135-149)
[2024-01-10 11:35] LABS: Creatinine* 0.9 mg/dL (0.5-1.5); Estimated Glomerular Filt Rate 100 ml/min
[2024-01-10 11:36] LABS: Alanine Aminotransferase* 34 U/L (4-50); Alkaline Phosphatase* 155 U/L (40-150); Anion Gap 9 mEq/L (7-15); Aspartate Amino Transferase* 90 U/L (12-35); Bilirubin Total* 2.4 mg/dL (0.1-1.5); Blood Urea Nitrogen* 9 mg/dL (7-30); Carbon Dioxide* 23 mmol/L (20-32); Glucose* 89 mg/dL (60-115); Total Protein* 8.4 g/dL (6.0-8.3)
[2024-01-10 11:37] LABS: Calcium* 9.2 mg/dL (8.4-10.6)
[2024-01-10 12:08] LABS: Hepatitis B Surface Antigen* Negative (Negative)
[2024-01-10 12:19] LABS: HIV 1/2/P24 Combo Screen* Negative (Negative)
[2024-01-10 12:26] LABS: Hepatitis C Virus Antibody* Negative (Negative); Vitamin B12* 980 pg/mL (243-894)
[2024-01-11 14:35] LABS: Alpha Fetoprotein Tumor Marker 9 ng/mL (0-9)
[2024-01-11 17:06] LABS: Copper, Serum/Plasma 77.1 ug/dL (70.0-140.0)
[2024-01-11 17:07] LABS: Zinc, Serum/Plasma 54.2 ug/dL (60.0-120.0)
[2024-01-11 21:41] LABS: Folate, Serum >22.3 ng/mL (>=5.9)
[2024-02-16 21:40] LABS: Alpha 1 Globulin 0.21 g/dL (0.19-0.46); Alpha 2 Globulin 0.44 g/dL (0.48-1.05); Immunofixation IFE Done; Immunoglobulin A 1076 mg/dL (68-408); Immunoglobulin G 2244 mg/dL (768-1632); Immunoglobulin M 100 mg/dL (35-263); Kappa Qnt Free Light Chains 79.18 mg/L (3.30-19.40); Kappa/Lambda Light Chain Ratio 1.04 (0.26-1.65); Lambda Qnt Free Light Chains 76.37 mg/L (5.71-26.30); Total Protein, Serum 7.1 g/dL (6.3-8.2)
[2024-02-19 15:08] LABS: C282Y Hemochromatosis Mutation Negative; H63D Hemochromatosis Mutation Negative; HFE PCR Specimen Whole Blood; S65C Hemochromatosis Mutation Heterozygous
== END 2024-03-03 23:59 | disposition home or self-care (01) ==
LOC: CCIC 13:10
PROVIDERS: PCP Family Medicine; Visit Provider Internal Medicine Hematology & Oncology
DX: D61.818 Other pancytopenia (principal)
CPT/HCPCS: 36415; 80053; 81256; 82105; 82525; 82607; 82728; 82746; 82784; 83520; 84155; 84165; 84630; 85025; 85045; 86334; 86703; 86803; 87340; 99202; 99204; 99214; G0463

== ENCOUNTER 2024-12-27 15:42 | Outpatient (CLI) | payer OTHER, SELFPAY | END 2024-12-27 15:43 | disposition home or self-care (01) | PROVIDERS: PCP Family Medicine; Visit Provider Family Medicine | DX: E87.6 Hypokalemia (principal); D61.818 Other pancytopenia; K74.60 Unspecified cirrhosis of liver; I10 Essential (primary) hypertension; R79.89 Other specified abnormal findings of blood chemistry | CPT/HCPCS: 80053; 82105; 82607; 82728; 82747 ==